=== PATIENT | female | born 1970 | race Asian ===

== ENCOUNTER 2017-12-07 13:52 | Outpatient (CLI) | payer BC ==
--- NOTE | 2017-12-07 15:35 | ULT ---
THYROID ULTRASOUND: 12/07/17 COMPARISON: None. HISTORY: Goiter. Palpable neck mass. TECHNIQUE: Multiplanar matamoros scale and color doppler images were obtained in a thyroid ultrasound. FINDINGS: There is a large complex mixed solid and cystic nodule in the right lobe of the thyroid measuring 3.9 x 2. 5 x 2.7 cm in size. This is well circumscribed without suspicious calcifications. The solid por tion of this nodule is isoechoic compared to the background thyroid parenchyma. No nodules are seen in the left thyroid lobe. The thyroid lobes measures 4.7 and 4.5 cm in length on the right and left, respectively. IMPRESSION: Although the right thyroid lesion is large, this is a TIRADS category 2 lesion. Per recent recommenda tions, no followup up or FNA is required. POS: LIZ
== END 2017-12-07 13:53 | disposition home or self-care (01) ==
LOC: SCSULT 13:52
PROVIDERS: ATTEND Family Medicine
DX: E04.9 Nontoxic goiter, unspecified (principal)
CPT/HCPCS: 76536

== ENCOUNTER 2018-04-12 12:07 | Day surgery (SDC) | payer BC ==
[2018-04-12 12:26] LABS: Hemoglobin 11.9 g/dL (12.0-16.0); Mean Corpuscular HGB CONC 32.7 g/dL (32.0-36.0); Mean Corpuscular Hemoglobin 33.2 pg (27.0-31.0); Mean Platelet Volume 6.4 fL (7.4-10.4); Platelet Count 275 thou/uL (130-400); RBC Distribution Width 12.3 % (11.5-14.5); Red Blood Cell (RBC) Count 3.59 mill/uL (4.20-5.40); White Blood Cell (WBC) Count 8.8 thou/uL (4.8-10.8)
[2018-04-12 12:33] LABS: PTT 25.5 SEC (22.9-36.1); Prothrombin Time 12.8 SEC (12.0-14.7)
[2018-04-12 13:16] VITALS: BMI 25.2
--- NOTE | 2018-04-12 15:12 | ULT ---
ULTRASOUND GUIDED RIGHT SIDED NEEDLE THYROID BIOPSY: Date: 04/12/18 HISTORY: Benign thyroid mass. COMPARISON: Ultrasound from 2018. FINDINGS: The patient was brought to the ultrasound suite. All questions were answered. Informed consent obtain ed. Timeout performed. The patient's right lobe of thyroid was reimaged. The large mass in the right inferior lobe of the th yroid is now nearly completely cystic with reticulation within in it and peripheral retracting clot. There is no actual solid component to biopsy. Subsequently, the right neck was prepped and draped in the normal sterile fashion. 2 mL of lidocaine was instilled into the superficial and deep soft tissue s. Using a 22 gauge spinal needle, 13 mL of old blood aspirate was pulled out. The size of the nodule markedly decreased. Again, there was no solid component to biopsy. IMPRESSION: Technically successful ultrasound guided right thyroid cyst aspiration. Of note, the cyst was much di fferent than the prior examination, there was no solid component to biopsy, only hemorrhagic peripher al retracting clot. POS: LIZ
== END 2018-04-12 14:15 | disposition home or self-care (01) ==
LOC: ULT 12:07
PROVIDERS: ATTEND Specialist
PROC: 0GBH3ZX Excision of Right Thyroid Gland Lobe, Percutaneous Approach, Diagnostic (ICD-10-PCS; principal; 2018-04-12)
DX: E04.1 Nontoxic single thyroid nodule (principal)
CPT/HCPCS: 36415; 60100; 76942; 85027; 85610; 85730; 88173; 88305

== ENCOUNTER 2018-05-21 08:13 | Outpatient (CLI) | payer BC ==
--- NOTE | 2018-05-21 08:55 | ULT ---
US Abdominal: 05/21/2018 12:00 AM CLINICAL HISTORY: Midepigastric abdominal pain. STUDY: Complete abdominal ultrasound COMPARISON: None. FINDINGS: Liver: Size: Normal. Echogenicity: Normal. Contour: Smooth. Mass: None. Common bile duct: 3 millimeters Gallbladder: Normal. Pancreas: Head, body, and tail appear normal. Inferior vena cava: Normal in caliber Aorta: Normal in caliber Spleen: No focal lesions. Spleen measuring 8.1 in length. Right kidney: No pelvicalyceal dilatation. Right kidney measuring 9.6 cm in length. Left kidney: No pelvicalyceal dilatation. Right kidney measuring 9.9 cm in length. IMPRESSION: Unremarkable exam.
== END 2018-05-21 08:14 | disposition home or self-care (01) ==
LOC: SCSULT 08:13
PROVIDERS: ATTEND Family Medicine
DX: R10.13 Epigastric pain (principal)
CPT/HCPCS: 76700